=== PATIENT | male | born 1950 | race Caucasian/White ===

== ENCOUNTER → 2016-12-23 | Outpatient (CLI) | payer MEDICARE ==
[~2016-12-23] MED LIST: ALLO300T PO; ASPI-515 PO; ATOR-2 PO; CLOP75TA PO; GLIM1TAB2 PO; LORA1TAB PO; LOSA100T6 PO; METO100T11 PO; PANT40TA5 PO; REGADENOSON 0.4 MG/5 ML SYRINGE ONE; SPIR25TA3 PO; TORS10TA4 PO; TORS20TA PO
== END | disposition home or self-care (01) ==
LOC: CFH 08:19
PROVIDERS: ATTEND Internal Medicine Cardiovascular Disease
DX: I50.41 Acute combined systolic (congestive) and diastolic (congestive) heart failure (principal); I25.10 Atherosclerotic heart disease of native coronary artery without angina pectoris; I42.9 Cardiomyopathy, unspecified; Z95.1 Presence of aortocoronary bypass graft
CPT/HCPCS: 78452; 93017; A9502; J2785